=== PATIENT | male | born 1955 | race Caucasian/White ===

== ENCOUNTER 2018-12-04 22:27 | Emergency (ER) | payer OTHER, SELFPAY ==
[~2018-12-04 22:27] MED LIST: Sodium Chloride Irrig Solution 250 ML BOT ONE
[2018-12-04] MEDS ORDERED: cefTRIAXone\\ROCEPHIN 1 GM VIAL ONE (22:51)
[2018-12-04] MEDS ORDERED: Adacel (T-DAP) 0.5 ML SYRINGE ONE (22:51)
[2018-12-04] MEDS ORDERED: Ciprofloxacin 500 MG TAB ONE (23:03)
[2018-12-04] MEDS ORDERED: AMOXicillin 250 MG CAP ONE (23:03)
[2018-12-04] MEDS ORDERED: Amoxicillin/Potassium Clav 500 MG TAB ONE (23:03)
--- NOTE | 2018-12-04 23:26 | RAD ---
THREE VIEWS RIGHT GREAT TOE: 12/04/18 HISTORY: Diabetic infection. AP, lateral, and oblique views right great toe is obtained. There is an area of ulceration along the nailbed and dorsal to it in the first great toe. This also involves the medial aspect of the nailbed. No evidence of underlying osseous abnormalities seen involving the distal phalanx first digit. No ot her abnormalities seen. IMPRESSION: Soft tissue ulceration but no evidence of acute bony abnormality seen involving the right great toe. POS: YOHANNES
== END 2018-12-04 22:30 | disposition home or self-care (01) ==
LOC: MADERS 22:27
DX: E11.628 Type 2 diabetes mellitus with other skin complications (principal); L03.031 Cellulitis of right toe; E11.40 Type 2 diabetes mellitus with diabetic neuropathy, unspecified; I10 Essential (primary) hypertension; Z79.82 Long term (current) use of aspirin; Z79.84 Long term (current) use of oral hypoglycemic drugs; Z79.899 Other long term (current) drug therapy
CPT/HCPCS: 36416; 90471; 90715; 96372; J0696

== ENCOUNTER 2019-11-04 09:20 | Outpatient (CLI) | payer OTHER, MEDICARE ==
[2019-11-04 09:53] LABS: #Basophils 0.1 thou/uL (0.0-0.2); #Eosinphils 0.1 thou/uL (0.0-0.7); #Lymphocytes 2.1 thou/uL (1.20-3.40); #Monocytes 0.7 thou/uL (0.11-0.59); #Neutrophils 6.5 thou/uL (1.40-6.50); %Basophils 0.7 % (0.0-1.0); %Eosinophils 1.3 % (0.0-10.0); %Lymphocytes 22.5 % (21.0-51.0); %Neutrophils 68.5 % (42.0-75.0); Hemoglobin 14.2 g/dL (14.0-18.0); Mean Corpuscular HGB CONC 32.2 g/dL (32.0-36.0); Mean Corpuscular Hemoglobin 27.7 pg (27.0-31.0); Mean Platelet Volume 7.5 fL (7.4-10.4); Platelet Count 222 thou/uL (130-400); RBC Distribution Width 11.6 % (11.5-14.5); Red Blood Cell (RBC) Count 5.11 mill/uL (4.70-6.10); White Blood Cell (WBC) Count 9.4 thou/uL (4.8-10.8)
[2019-11-04 09:57] LABS: ALT (SGPT) 12 U/L (8-55); AST (SGOT) 10 U/L (5-34); Albumin 3.9 g/dL (3.4-4.8); Alkaline Phosphatase 43 U/L (40-110); Anion Gap 15 mmol/L (10-20); BUN (Urea Nitrogen) 23 mg/dL (8.4-25.7); Bilirubin, Total 0.4 mg/dL (0.2-1.2); Calc. Creatinine Clearance 0 mL/min (70-130); Calcium 9.8 mg/dL (7.8-10.44); Carbon Dioxide 23 mmol/L (23-31); Chloride 107 mmol/L (98-107); Cholesterol 135 mg/dl (< 200 Desired); Estimated GFR-MDRD 66; Globulin 3.2 g/dL (2.4-3.5); Glucose 125 mg/dL (80-115); HDL Cholesterol 45 mg/dL (>60 Neg Risk); LDL Cholesterol, Calculated 74 mg/dL; Potassium 4.9 mmol/L (3.5-5.1); Protein, Total 7.1 g/dL (5.8-8.1); Sodium 140 mmol/L (136-145); Triglycerides 80 mg/dL (Less than 150)
--- NOTE | 2019-11-04 10:48 | RAD ---
LEFT KNEE FOUR VIEWS: History: Knee pain. FINDINGS: Moderate to severe degenerative changes are noted. There is loss of medial joint space. Prominent spu rring from medial joint compartment noted with osteophytes from the medial femoral condyle and tibial condyle. There is also spurring from the lateral condyles. Narrowing and spurring of the patellofemo ral joint. Evidence of small joint effusion. No fracture or acute abnormality. IMPRESSION: Moderate to severe degenerative changes left knee. POS: ANUSHA
[2019-11-04 17:04] LABS: Hemoglobin A1c 7.4 % (4.0-6.0)
[2019-11-04 17:23] LABS: Creatinine, Urine 178.36 mg/dL (63-166); Microalbumin Urine 35.9 mg/dL (0.5-50.0); Microalbumin/Creat Ratio 201.3 mg/g (Less than 30)
== END 2019-11-04 09:21 | disposition home or self-care (01) ==
LOC: MADLABBHPM 09:20 → EDSTATUS 09:23
PROVIDERS: ATTEND Family Medicine
DX: M25.562 Pain in left knee (principal); M17.12 Unilateral primary osteoarthritis, left knee; E11.9 Type 2 diabetes mellitus without complications; E78.5 Hyperlipidemia, unspecified
CPT/HCPCS: 36415; 80053; 80061; 82043; 83036; 85025

== ENCOUNTER 2021-04-15 19:41 | Emergency (ER) | payer MEDICARE, OTHER ==
[2021-04-15] MEDS ORDERED: Lidocaine 1% 20 ML MDV ONE (21:49)
[2021-04-15] MEDS ORDERED: Amoxicillin/Potassium Clav 875 MG TAB ONE (21:49)
== END 2021-04-15 22:54 | disposition home or self-care (01) ==
LOC: MADERS 19:41
DX: S67.02XA Crushing injury of left thumb, initial encounter (principal); S61.012A Laceration without foreign body of left thumb without damage to nail, initial encounter; E11.40 Type 2 diabetes mellitus with diabetic neuropathy, unspecified; I10 Essential (primary) hypertension; E78.00 Pure hypercholesterolemia, unspecified; F17.220 Nicotine dependence, chewing tobacco, uncomplicated; W23.0XXA Caught, crushed, jammed, or pinched between moving objects, initial encounter
CPT/HCPCS: 12002

== ENCOUNTER 2025-06-02 19:42 | Emergency (ER) | payer OTHER, MEDICARE ==
[2025-06-02 20:38] LABS: Glucose, Urine (Dipstick) >=1000 mg/dL (Negative); Leukocyte Negative (Negative); Protein, Urine (Dipstick) > or equal to 300 mg/dL (Neg-Trace); Specific Gravity, Urine Greater/Equal 1.030 (1.005-1.030)
[2025-06-02 20:41] LABS: Bacteria/HPF Rare-Few HPF (None Seen); CAUTI Indications for Culture Acute Hematuria; WBC/HPF 0-3 HPF (0-3)
[2025-06-02 20:42] LABS: Urine Culture Reflex No No
[2025-06-02] MEDS ORDERED: Ketorolac Tromethamine 30 MG (1 mL) VIAL ONE (20:47)
[2025-06-02] MEDS ORDERED: Pantoprazole 40 MG VIAL ONE (20:47)
[2025-06-02] MEDS ORDERED: Ondansetron PF 4 MG/2 ML Vial ONE (20:47)
[2025-06-02 21:23] LABS: ALT (SGPT) 11 U/L (Less than 45); AST (SGOT) 19 U/L (11-34); Albumin 4.4 g/dL (3.1-4.5); Alkaline Phosphatase 63 U/L (40-110); Anion Gap 16 mmol/L (10-20); BUN (Urea Nitrogen) 23 mg/dL (8.4-25.7); Bilirubin, Total 0.7 mg/dL (0.3-1.2); Calc. Creatinine Clearance 0 mL/min (70-130); Calcium 9.6 mg/dL (7.8-10.44); Carbon Dioxide 20 mmol/L (23-31); Chloride 107 mmol/L (98-107); Globulin 4.1 g/dL (2.4-3.5); Glucose 202 mg/dL (80-115); Lipase 35 U/L (8-78); Potassium 4.4 mmol/L (3.5-5.1); Sodium 139 mmol/L (136-145)
[2025-06-02 21:32] LABS: #Basophils 0.0 thou/uL (0.0-0.2); #Eosinophils 0.0 thou/uL (0.0-0.7); #Lymphocytes 1.4 thou/uL (1.20-3.40); #Monocytes 0.6 thou/uL (0.11-0.59); #Neutrophils 12.2 thou/uL (1.40-6.50); %Basophils 0.3 % (0.0-1.0); %Eosinophils 0.1 % (0.0-10.0); %Lymphocytes 10.0 % (21.0-51.0); %Monocytes 4.5 % (0.0-10.0); %Neutrophils 85.1 % (42.0-75.0); Hematocrit 42.7 % (42.0-52.0); Hemoglobin 13.7 g/dL (14.0-18.0); Mean Corpuscular Hemoglobin 27.3 pg (27.0-31.0); Mean Corpuscular Volume 85.4 fl (78.0-98.0); Platelet Count 212 10x3/uL (130-400); Red Blood Cell (RBC) Count 5.00 mill/uL (4.70-6.10); White Blood Cell (WBC) Count 14.3 10x3/uL (4.8-10.8)
[2025-06-02] MEDS ORDERED: Simethicone Chewable 80 MG TAB ONE (22:32)
[2025-06-02] MEDS ORDERED: cefTRIAXone (ROCEPHIN) 2 GM VIAL ONE (22:32)
== END 2025-06-02 23:10 | disposition home or self-care (01) ==
LOC: MADERS 19:42
DX: N20.1 Calculus of ureter (principal); K31.89 Other diseases of stomach and duodenum; N39.0 Urinary tract infection, site not specified; E11.42 Type 2 diabetes mellitus with diabetic polyneuropathy; I10 Essential (primary) hypertension; E78.5 Hyperlipidemia, unspecified; F17.220 Nicotine dependence, chewing tobacco, uncomplicated; Z79.84 Long term (current) use of oral hypoglycemic drugs; Z79.899 Other long term (current) drug therapy
CPT/HCPCS: 74177; 80053; 81001; 82274; 83690; 85025; 87086; 96361; 96365; 96375; J0696; J1885; J2405; J2470; J7030